=== PATIENT | male | born 1940 | race Caucasian/White ===

== ENCOUNTER 2023-04-23 15:32 | Inpatient (IN) | payer MEDICARE, MEDICAID ==
[~2023-04-23] VITALS: Ht 165.1 cm; Wt 78.2 kg
[~2023-04-23 15:32] MED LIST: ASPI-1406 PO; ATOR20TA65 PO; CARB100T49 PO; CARB400T8 PO; FINA5TAB11 PO; GABA-532 PO; LOSA25TA26 PO; NAPR-681 PO; NIFE-32 PO; TAMS-11 PO
[2023-04-23 15:34] VITALS: O2SAT 96
[2023-04-23 17:26] LABS: CHLORIDE 94 mEq/L (98-107); INDEX HEMOLYSI 1 (1-3); INDEX ICTERIC 1 (1-4); INDEX LIPEMIC 1 (1-3); POTASSIUM 4.7 mEq/L (3.5-5.1); SODIUM 126 mEq/L (136-145)
[2023-04-23 17:31] LABS: ALBUMIN 3.4 g/dL (3.4-5.0); BASOPHILS % 0.1 % (0.0-2.0); CALCIUM 7.9 mg/dL (8.5-10.1); CARBON DIOXIDE 24 mEq/L (21-32); CLARITY URINE CLEAR (CLEAR); COLOR URINE DARK YELLOW (YELLOW); EOSINOPHILS % 0.3 % (0.0-5.0); GLUCOSE 132 mg/dL (70-105); GLUCOSE URINE NEGATIVE (NEGATIVE); KETONES URINE TRACE (NEGATIVE); LEUKOCYTE ESTERASE URINE NEGATIVE (NEGATIVE); LYMPHOCYTES % 45.8 % (20.0-50.0); MEAN CORPUSCULAR HEMOGLOBIN 31.2 pg (28.0-32.0); MEAN CORPUSCULAR HGB CONC 34.4 g/dL (31.0-37.0); MEAN CORPUSCULAR VOLUME 90.6 fL (80.0-94.0); MONOCYTES % 3.2 % (2.0-8.0); NEUTROPHILS % 50.6 % (40.0-76.0); NITRITE URINE NEGATIVE (NEGATIVE); OCCULT BLOOD URINE NEGATIVE (NEGATIVE); PROTEIN URINE NEGATIVE (NEGATIVE); RED BLOOD CELL COUNT 3.54 mill/uL (4.7-6.1); RED CELL DISTRIBUTION WIDTH 15.2 % (11.6-14.6); SPECIFIC GRAVITY URINE 1.016 (1.005-1.030); UREA NITROGEN BLOOD 23 mg/dL (7-21); WHITE BLOOD COUNT 9.7 x1000/uL (4.5-11.0)
[2023-04-23 17:34] LABS: DIFFERENTIAL COMMENT 1
[2023-04-23 17:35] LABS: ALANINE AMINOTRANSFERASE 36 IU/L (13-61); ASPARTATE AMINOTRANSFERASE 25 IU/L (15-37); BILIRUBIN TOTAL 0.2 mg/dL (0.1-1.0); CREATININE 0.6 mg/dL (0.6-1.3); PROTEIN TOTAL 5.7 g/dL (6.0-8.3)
[2023-04-23 18:21] LABS: MEAN PLATELET VOLUME 7.5 fl (7.4-10.4); PLATELET 149 x1000/uL (130-400)
[2023-04-23] MEDS ORDERED: SODIUM CHLORIDE 0.9% 1,000 ML IV ONE (19:45)
[2023-04-23] MEDS ORDERED: DOCUSATE SODIUM 100MG CAPSULE PO PRN (22:30)
[2023-04-23] MEDS ORDERED: ZOLPIDEM TARTRATE 5MG TABLET PO PRN (22:30)
[2023-04-23] MEDS ORDERED: ONDANSETRON HCL 4MG/2ML INJ IV PRN (22:30)
[2023-04-23] MEDS ORDERED: ACETAMINOPHEN 325MG TABLET PO PRN ×2 (22:30)
[2023-04-23] MEDS ORDERED: MAGNESIUM/ALUMINUM HYDROXIDE/SIMETHICONE 30ML UDC PO PRN (22:30)
[2023-04-23 23:18] LABS: INDEX HEMOLYSI 1 (1-3); INDEX ICTERIC 1 (1-4); INDEX LIPEMIC 1 (1-3)
[2023-04-23] MEDS: SODIUM CHLORIDE 0.9% 1,000 ML IV SCH (23:20)
[2023-04-23 23:33] LABS: ETHANOL BLOOD < 10 mg/dL (<10); IRON 50 ug/dL (50-175); NT PRO B-TYPE NATRIURETIC PEP 577 pg/mL (5-125); PHOSPHORUS 4.1 mg/dL (2.5-4.9); T4 FREE 0.67 ng/dL (0.76-1.46); TOTAL IRON BINDING CAPACITY 324 ug/dL (250-450)
[2023-04-23 23:35] VITALS: BP 144/53; PULSE 40; RESP 16; RESP 18; TEMP 97
[2023-04-24] VITALS (8 sets, daily range): BP systolic 121–192; BP diastolic 64–95; PULSE 48–68; RESP 18–20; TEMP 97.5–98.6
[2023-04-24] MEDS ORDERED: DEXTROSE 50% WATER 50ML SYRINGE IV PRN (02:15)
[2023-04-24 03:54] LABS: CHLORIDE 99 mEq/L (98-107); INDEX HEMOLYSI 1 (1-3); INDEX ICTERIC 1 (1-4); INDEX LIPEMIC 1 (1-3); SODIUM 130 mEq/L (136-145)
[2023-04-24 04:04] LABS: CALCIUM 7.7 mg/dL (8.5-10.1); CARBON DIOXIDE 26 mEq/L (21-32); CREATINE KINASE 102 IU/L (39-308); CREATINE KINASE MB FRACTION 2.4 ng/mL (0.5-3.6); CREATININE 0.6 mg/dL (0.6-1.3); GLUCOSE 115 mg/dL (70-105); TROPONIN I HIGH SENSITIVITY 10 ng/L (<78); UREA NITROGEN BLOOD 22 mg/dL (7-21)
[2023-04-24 04:34] LABS: HEMATOCRIT. 31.7 % (42.0-52.0); HEMOGLOBIN. 10.9 g/dL (14.0-18.0); MEAN CORPUSCULAR HEMOGLOBIN 31.2 pg (28.0-32.0); MEAN CORPUSCULAR HGB CONC 34.3 g/dL (31.0-37.0); MEAN CORPUSCULAR VOLUME 90.9 fL (80.0-94.0); MEAN PLATELET VOLUME 7.3 fl (7.4-10.4); PLATELET 141 x1000/uL (130-400); RED BLOOD CELL COUNT 3.49 mill/uL (4.7-6.1); RED CELL DISTRIBUTION WIDTH 14.9 % (11.6-14.6)
[2023-04-24 04:39] LABS: DIFFERENTIAL COMMENT 1
[2023-04-24] MEDS: BLOOD SUGAR DIAGNOSTIC STRIP TEST SCH ×2 (05:54→12:15)
[2023-04-24] MEDS: INSULIN LISPRO 100 UNITS/ML SUBCUT SCH ×2 (05:54→12:40)
[2023-04-24] MEDS: FINASTERIDE 5MG TABLET PO SCH (09:19)
[2023-04-24 09:20] LABS: SODIUM URINE RANDOM 29 mEq/L
[2023-04-24] MEDS: TAMSULOSIN HCL 0.4MG SR CAPSULE PO SCH (09:32)
[2023-04-24] MEDS: GABAPENTIN 300MG CAPSULE PO SCH ×3 (09:33→18:22)
[2023-04-24] MEDS: ENOXAPARIN 40MG/0.4ML SYR SUBCUT SCH (09:35)
[2023-04-24 09:45] LABS: *AMPHETAMINES SCREEN URINE NEGATIVE (NEGATIVE); *BARBITURATES SCREEN URINE NEGATIVE (NEGATIVE); *BENZODIAZEPINES SCREEN URINE NEGATIVE (NEGATIVE); *COCAINE SCREEN URINE NEGATIVE (NEGATIVE); CANNABINOID URINE SCREEN NEGATIVE (NEGATIVE); ECSTASY MDMA SCREEN URINE CONF.TEST INDICATED (NEGATIVE); METHADONE URINE SCREEN NEGATIVE (NEGATIVE); OPIATES URINE SCREEN NEGATIVE (NEGATIVE); PHENCYCLIDINE URINE SCREEN NEGATIVE (NEGATIVE)
[2023-04-24] MEDS: CLONIDINE 0.1MG TABLET PO PRN ×2 (09:53→23:39)
[2023-04-24 12:34] LABS: PLATELET ESTIMATE NORMAL
[2023-04-24 12:43] LABS: OSMOLALITY URINE 376 mOsm/kg (500-850)
[2023-04-24] MEDS: FERROUS SULFATE 325MG TABLET PO SCH ×2 (13:34→18:22)
[2023-04-24] MEDS ORDERED: LOSARTAN 25 MG TABLET PO SCH (14:45)
[2023-04-24] MEDS ORDERED: SODIUM CHLORIDE 0.9% 500 ML IV ONE (16:00)
[2023-04-24] MEDS ORDERED: CARBAMAZEPINE 200MG TABLET PO SCH (21:00)
[2023-04-24] MEDS ORDERED: ATORVASTATIN CALCIUM 20MG TABLET PO SCH (21:00)
[2023-04-25] VITALS: BP 170/69; PULSE 62; RESP 18; TEMP 97
[2023-04-25 04:00] VITALS: BP 161/71; PULSE 62; RESP 18; TEMP 98.8
[2023-04-25] MEDS: SODIUM CHLORIDE 0.9% 1,000 ML IV SCH (04:42)
[2023-04-25] MEDS: CLONIDINE 0.1MG TABLET PO PRN (06:00)
[2023-04-25 06:29] LABS: HEMATOCRIT. 33.1 % (42.0-52.0); HEMOGLOBIN. 11.7 g/dL (14.0-18.0); MEAN CORPUSCULAR HGB CONC 35.3 g/dL (31.0-37.0); MEAN CORPUSCULAR VOLUME 90.6 fL (80.0-94.0); MEAN PLATELET VOLUME 7.6 fl (7.4-10.4); PLATELET 157 x1000/uL (130-400); RED BLOOD CELL COUNT 3.65 mill/uL (4.7-6.1); RED CELL DISTRIBUTION WIDTH 15.2 % (11.6-14.6); WHITE BLOOD COUNT 6.2 x1000/uL (4.5-11.0)
[2023-04-25 07:11] LABS: CALCIUM 8.1 mg/dL (8.5-10.1); CARBON DIOXIDE 30 mEq/L (21-32); CHLORIDE 102 mEq/L (98-107); INDEX HEMOLYSI 1 (1-3); INDEX ICTERIC 1 (1-4); INDEX LIPEMIC 1 (1-3); POTASSIUM 3.8 mEq/L (3.5-5.1); SODIUM 135 mEq/L (136-145); UREA NITROGEN BLOOD 9 mg/dL (7-21)
[2023-04-25 07:15] LABS: CREATININE 0.4 mg/dL (0.6-1.3); GLUCOSE 93 mg/dL (70-105)
[2023-04-25 07:22] LABS: DIFFERENTIAL COMMENT 1
[2023-04-25 08:00] VITALS: BP_SYST 116; BP_SYST 154; BP_SYST 159; BP_DIAS 65; BP_DIAS 69; BP_DIAS 71; PULSE 59; PULSE 61; RESP 18; TEMP 97.9
[2023-04-25] MEDS ORDERED: CARBAMAZEPINE 200MG TABLET PO SCH ×2 (09:00→16:00)
[2023-04-25] MEDS ORDERED: PATIENT'S OWN MEDICATION PO SCH (09:00)
[2023-04-25] MEDS ORDERED: LOSARTAN 50 MG TABLET PO SCH (09:00)
[2023-04-25] MEDS: TAMSULOSIN HCL 0.4MG SR CAPSULE PO SCH (09:22)
[2023-04-25] MEDS: GABAPENTIN 300MG CAPSULE PO SCH ×2 (09:22→17:17)
[2023-04-25] MEDS: FINASTERIDE 5MG TABLET PO SCH (09:23)
[2023-04-25] MEDS: ENOXAPARIN 40MG/0.4ML SYR SUBCUT SCH (09:23)
[2023-04-25] MEDS: FERROUS SULFATE 325MG TABLET PO SCH ×2 (09:23→17:17)
[2023-04-25] MEDS ORDERED: HYDRALAZINE 20MG/ML VIAL IV SCH ×2 (12:00→14:00)
[2023-04-25 16:00] VITALS: BP 138/78; PULSE 82; RESP 20; TEMP 97.9
[2023-04-25] MEDS ORDERED: HYDRALAZINE 20MG/ML VIAL IV NR (17:00)
[2023-04-25 20:18] LABS: PLATELET ESTIMATE NORMAL
== END 2023-04-25 19:00 | disposition home or self-care (01) | DRG 309 ==
LOC: ER 15:32 → 8WST 21:48
PROVIDERS: ADMIT Internal Medicine; ATTEND Internal Medicine
DX: R00.1 Bradycardia, unspecified (principal); E87.1 Hypo-osmolality and hyponatremia; I45.10 Unspecified right bundle-branch block; D64.9 Anemia, unspecified; I10 Essential (primary) hypertension; N40.0 Benign prostatic hyperplasia without lower urinary tract symptoms; T42.1X5A Adverse effect of iminostilbenes, initial encounter; E78.5 Hyperlipidemia, unspecified; E87.5 Hyperkalemia; G40.909 Epilepsy, unspecified, not intractable, without status epilepticus; E03.8 Other specified hypothyroidism; I08.1 Rheumatic disorders of both mitral and tricuspid valves; E83.51 Hypocalcemia; N28.1 Cyst of kidney, acquired; Z86.73 Personal history of transient ischemic attack (TIA), and cerebral infarction without residual deficits; Z90.49 Acquired absence of other specified parts of digestive tract; Z79.899 Other long term (current) drug therapy; Y92.89 Other specified places as the place of occurrence of the external cause
CPT/HCPCS: 36415; 71045; 74176; 80048; 80053; 80061; 80305; 80320; 81003; 82533; 82550; 82553; 82728; 82962; 83036; 83540; 83550; 83605; 83735; 83880; 83930; 83935; 84100; 84300; 84439; 84443; 84480; 84484; 85025; 93005; 93306; 93880; 99291; C1893; J0360; J1650; J7030; G0480